=== PATIENT | male | born 1990 | race Caucasian/White ===

== ENCOUNTER 2017-08-30 20:46 | Observation (INO) | payer SELFPAY ==
[~2017-08-30] VITALS: Ht 193 cm; Wt 121.7 kg
[~2017-08-30 20:46] MED LIST: BACT800T5 PO; CEPH-460 PO; IBUP1TAB7 PO
[2017-08-30 21:20] VITALS: BP 155/92; PULSE 95; RESP 15; TEMP 99.6; O2SAT 99
[2017-08-30 21:42] VITALS: BP 134/86; PULSE 92; RESP 20; O2SAT 98
[2017-08-30] MEDS ORDERED: SODIUM CHLOR 0.9% 1000 ML INJ 1,000 ML IV ONE (21:45)
[2017-08-30] MEDS ORDERED: MORPHINE SULFATE 4 MG/ML INJ IV PUSH ONE (21:45)
[2017-08-30] MEDS ORDERED: METOCLOPRAMIDE HCL 10 MG/2 ML VIAL IV PUSH ONE (21:45)
[2017-08-30] MEDS ORDERED: NEXI20CA PO (21:46)
--- NOTE | 2017-08-30 21:51 | PD ---
HPI Chief Complaint: Abdominal Pain Time Seen by Provider: 21:26 Travel History International Travel<30 days: No Contact w/Intl Traveler<30days: No Traveled to known affect area: No History of Present Illness HPI The patient is a 26 year old male who presents to the [facility] emergency department with a history of abdominal pain that began around 1 PM today shortly after eating a small lunch. The patient reports that it began as a generalized abdominal cramping that then localized to the right lower quadrant of the abdomen. He reports that he has intermittent sharp pains in his right lower quadrant that occur with movement, with a dull aching sensation that is now constant. He denies having any known fevers. He reports having nausea without vomiting. He denies having any diarrhea. His last bowel movement was earlier today. He denies having any blood in his stool or black or tarry stools. He does have a history of heartburn and acid reflux which he treats with [id number]-iultdea omeprazole or Nexium. He denies this being any worse than usual recently. He denies having any dysuria, hematuria, urinary urgency, or frequency. He denies having any back pain. He denies having any pain down into his scrotum or scrotal swelling. The patient's only prior abdominal surgeries are an umbilical hernia and bilateral inguinal hernia repair as a child. On review of systems otherwise, the patient does report having a diminished appetite since the onset of symptoms. He denies having any cough, congestion, neck pain, chest pain, shortness of breath, or neurologic symptoms. The patient denies having any food intolerances. He denies having any recent problems with fatty food intake inducing nausea, abdominal pain, or diarrhea. [facility] Past Medical History Narrative Medical The patient's past medical history is significant for acid reflux. Past Surgical History Narrative Surgical The patient's past surgical history is significant for bilateral inguinal hernia repair, umbilical hernia repair as a child. Social History Alcohol Use: Yes (occ) Tobacco Use: No Substance Use: No Allergies-Medications (Allergen,Severity, Reaction): Coded Allergies: iodine (Verified Allergy, Unknown, 08/30/17) shellfish derived (Unverified Allergy, Unknown, 08/30/17) Reported Meds & Prescriptions Reported Meds & Active Scripts Active Reported Nexium (Esomeprazole DR) 20 Mg Capdr 20 Mg PO DAILY Review of Systems Except as stated in HPI: all other systems reviewed are Neg General / Constitutional: No: Fever Eyes: No: Visual changes HENT: No: Headaches Cardiovascular: No: Chest Pain or Discomfort Respiratory: No: Shortness of Breath Gastrointestinal: Positive: Nausea, Abdominal Pain, Indigestion, Loss of Appetite, No: Vomiting, Diarrhea, Hematochezia, Changes in Bowel Habits Genitourinary: No: Dysuria Musculoskeletal: No: Pain Skin: No Rash Neurologic: No: Weakness Psychiatric: No: Depression Endocrine: No: Polydipsia Hematologic/Lymphatic: No: Easy Bruising Physical Exam Narrative General: The patient is a well-developed well-nourished male in no acute distress. Head and Neck exam: Head is normocephalic atraumatic. Eyes: EOMI, pupils are equal round and reactive to light. Nose: Midline septum with pink mucous membranes Mouth: Dentition unremarkable. Moist mucus membranes. Posterior oropharynx is not erythematous. No tonsillar hypertrophy. Uvula midline. Airway patent. Neck: No palpable lymphadenopathy. No nuchal rigidity. No thyromegaly. Cardiovascular: Regular rate and rhythm without murmurs, gallops, or rubs. No pulse deficit to the extremities on simultaneous auscultation and palpation of his radial artery. Lungs: Clear to auscultation bilaterally. No wheezes, rhonchi, or rales. Abdomen: Soft, with tenderness on palpation of the right upper and right lower quadrant on examination no tenderness on palpation of the left upper and left lower quadrant. The patient has a negative Moser sign. The patient does have tenderness on palpation over McBurney's point. No guarding, rebound, or rigidity. Negative Rovsing sign. Normal bowel sounds are audible. Extremities: No clubbing, cyanosis, or edema. 2+ pulses in all 4 extremities. No calf tenderness on palpation. Back: No spinous process tenderness to palpation. No costovertebral angle tenderness to palpation. Neurologic Exam: Grossly nonfocal. Skin Exam: No rash noted. Intact skin that is warm and dry. Data Data Last Documented VS Vital Signs Date Time Temp Pulse Resp B/P (MAP) Pulse Ox O2 Delivery O2 Flow Rate FiO2 08/30/17 21:58 20 98 Room Air 08/30/17 21:42 92 08/30/17 21:20 99.6 Orders Orders Complete Blood Count With Diff (08/30/17 21:36) Comprehensive Metabolic Panel (08/30/17 21:36) Prothrombin Time / Inr (Pt) (08/30/17 21:36) Act Partial Throm Time (Ptt) (08/30/17 21:36) C-Reactive Protein (Crp) (08/30/17 21:36) Lipase (08/30/17 21:36) Urinalysis - C+S If Indicated (08/30/17 21:36) Magnesium (Mg) (08/30/17 21:36) Iv Access Insert/Monitor (08/30/17 21:36) Ecg Monitoring (08/30/17 21:36) Oximetry (08/30/17 21:36) Sodium Chlor 0.9% 1000 Ml Inj (Ns 1000 M (08/30/17 21:45) Morphine Inj (Morphine Inj) (08/30/17 21:45) Metoclopramide Inj (Reglan Inj) (08/30/17 21:45) Ct Abd/Pel W/O Iv Contrast (08/30/17 21:36) Piperacil-Tazo 3.375 Gm Premix (Zosyn 3. (08/30/17 22:45) Admit Order (Ed Use Only) (08/30/17 23:02) Labs Laboratory Tests Test 08/30/17 21:50 White Blood Count 13.8 TH/MM3 Red Blood Count 4.94 MIL/MM3 Hemoglobin 13.8 GM/DL Hematocrit 41.6 % Mean Corpuscular Volume 84.3 FL Mean Corpuscular Hemoglobin 28.0 PG Mean Corpuscular Hemoglobin Concent 33.2 % Red Cell Distribution Width 12.5 % Platelet Count 302 TH/MM3 Mean Platelet Volume 8.7 FL Neutrophils (%) (Auto) 86.0 % Lymphocytes (%) (Auto) 8.8 % Monocytes (%) (Auto) 4.5 % Eosinophils (%) (Auto) 0.3 % Basophils (%) (Auto) 0.4 % Neutrophils # (Auto) 11.9 TH/MM3 Lymphocytes # (Auto) 1.2 TH/MM3 Monocytes # (Auto) 0.6 TH/MM3 Eosinophils # (Auto) 0.0 TH/MM3 Basophils # (Auto) 0.1 TH/MM3 CBC Comment DIFF FINAL Differential Comment Prothrombin Time 10.7 SEC Prothromb Time International Ratio 1.1 RATIO Activated Partial Thromboplast Time 25.2 SEC Blood Urea Nitrogen 14 MG/DL Creatinine 1.15 MG/DL Random Glucose 101 MG/DL Total Protein 8.2 GM/DL Albumin 4.3 GM/DL Calcium Level 9.8 MG/DL Magnesium Level 2.0 MG/DL Alkaline Phosphatase 93 U/L Aspartate Amino Transf (AST/SGOT) 24 U/L Alanine Aminotransferase (ALT/SGPT) 67 U/L Total Bilirubin 0.5 MG/DL Sodium Level 137 MEQ/L Potassium Level 4.1 MEQ/L Chloride Level 103 MEQ/L Carbon Dioxide Level 24.9 MEQ/L Anion Gap 9 MEQ/L Estimat Glomerular Filtration Rate 76 ML/MIN C-Reactive Protein 2.00 MG/DL Lipase 140 U/L MDM Medical Decision Making Medical Screen Exam Complete: Yes Emergency Medical Condition: Yes Medical Record Reviewed: Yes Differential Diagnosis Appendicitis, versus acute cholecystitis, versus mesenteric adenitis, versus kidney stone, versus biliary colic Narrative Course During the course of the patient's emergency department visit, the patient's history, examination, and differential diagnosis were reviewed with the patient. The patient was placed on a playground monitor with oximetry and frequent blood pressure monitoring. The patient had IV access obtained and blood work sent for analysis. A CT scan of the abdomen and pelvis has been ordered. The patient was initially provided normal saline 1 L IV fluid bolus, morphine for pain, Compazine for nausea. The patient's laboratory studies were reviewed and remarkable for a white count of 13.8, hemoglobin 13.8, platelets 302 with 86 neutrophils, CMP is remarkable for GFR 76, C-reactive protein is elevated at 2, lipase 140, PT 10.7, PTT 25.2 Radiology studies were reviewed and remarkable for a CT scan of the abdomen and pelvis reveals evidence of acute appendicitis A call has been placed out to Dr. Rodriguez tolerated the general surgeon on- call at 10:30 PM. The patient's results were discussed with the patient, including the plan of care. I explained that further testing and/ or monitoring is indicated based on the patient's history, examination, and/ or laboratory findings. Therefore, I recommended admission for additional evaluation. The patient expressed understanding and was agreeable with this plan. The patient was admitted to the hospital in stable condition and sent to a bed under the care of Dr Rodriguez. Physician Communication Physician Communication The patient's case including history, pertinent physical examination findings, and laboratory studies were discussed with Jennifer. It was agreed that the patient would be admitted to the surgeon's service. Diagnosis Primary Impression: Abdominal pain Qualified Codes: R10.31 - Right lower quadrant pain Additional Impression: Acute appendicitis Qualified Codes: K35.3 - Acute appendicitis with localized peritonitis Admitting Information Admitting Physician Requests: Observation Eveline Mullins MD Aug 30, 2017 21:51
[2017-08-30 21:58] VITALS: RESP 20; O2SAT 98
[2017-08-30 21:59] LABS: AUTOMATED NEUTROPHIL # 11.9 TH/MM3 (1.8-7.7); BASOPHIL # 0.1 TH/MM3 (0-0.2); BASOPHIL % 0.4 % (0.0-2.0); EOSINOPHIL % 0.3 % (0.0-4.0); HEMATOCRIT 41.6 % (39.0-51.0); HEMOGLOBIN 13.8 GM/DL (13.0-17.0); LYMPH % 8.8 % (9.0-44.0); LYMPHOCYTE # 1.2 TH/MM3 (1.0-4.8); MEAN CELL VOLUME 84.3 FL (80.0-100.0); MEAN CORPUSCULAR HGB CONC 33.2 % (32.0-36.0); MEAN PLATELET VOLUME 8.7 FL (7.0-11.0); MONO % 4.5 % (0.0-8.0); MONOCYTE # 0.6 TH/MM3 (0-0.9); PLATELET COUNT 302 TH/MM3 (150-450); RED BLOOD COUNT 4.94 MIL/MM3 (4.50-5.90); RED CELL DISTRIBUTION WIDTH 12.5 % (11.6-17.2); WHITE BLOOD COUNT 13.8 TH/MM3 (4.0-11.0)
[2017-08-30 22:09] LABS: INTERNATIONAL NORMALIZED RATIO 1.1 RATIO; PROTHROMBIN TIME - PATIENT 10.7 SEC (9.8-11.6)
[2017-08-30 22:16] LABS: ALBUMIN 4.3 GM/DL (3.4-5.0); AST (GOT) 24 U/L (15-37); BICARBONATE 24.9 MEQ/L (21.0-32.0); BLOOD UREA NITROGEN 14 MG/DL (7-18); CALCIUM 9.8 MG/DL (8.5-10.1); CHLORIDE 103 MEQ/L (98-107); CREATININE 1.15 MG/DL (0.60-1.30); GLOMERULAR FILTRATION RATE 76 ML/MIN (>89); GLUCOSE,RANDOM 101 MG/DL (74-106); SODIUM (NA) 137 MEQ/L (136-145)
[2017-08-30 22:17] LABS: ALT (GPT) 67 U/L (12-78)
[2017-08-30 22:19] LABS: ALKALINE PHOSPHATASE 93 U/L (45-117); TOTAL BILIRUBIN ADULT 0.5 MG/DL (0.2-1.0); TOTAL PROTEIN 8.2 GM/DL (6.4-8.2)
--- NOTE | 2017-08-30 22:19 | RADRPT ---
EXAM DATE: 08/30/2017 10:16 PM EDT AGE/SEX: 26 years / Male INDICATIONS: Right lower quadrant pain and nausea. CLINICAL DATA: This is the patient's initial encounter. Patient reports that signs and symptoms have been present for 1 day and indicates a pain score of 8/10. MEDICAL/SURGICAL HISTORY: Gastroesophageal reflux disease. None. RADIATION DOSE: 16.49 CTDI (mGy) COMPARISON: No prior [facility] exams available for comparison. TECHNIQUE: Multiple contiguous axial images were obtained through the abdomen. Images were obtained using multiple row detector helical technique. Using dose reduction techniques, radiation dose was ke pt as low as reasonably achievable to obtain optimal diagnostic quality images. FINDINGS: Lung bases are clear. No pleural or pericardial effusions are identified. Liver, gallbladder, spleen, pancreas, adrenal glands, kidneys, urinary bladder, prostate unremarkable. No evidence of bowel obst ruction. There are inflammatory changes seen within the right lower quadrant consisting of inflammato ry fat stranding surrounding the appendix and trace periappendiceal fluid. The appendix is increased in diameter up to 11 mm in maximal dimension. There are tiny subcentimeter lymph nodes in this region . CONCLUSION: 1. Acute appendicitis. Electronically signed by: Dash Gama MD 08/30/2017 10:18 PM EDT
[2017-08-30] MEDS ORDERED: PIPERACIL-TAZO 3.375 GM PREMIX 50 ML IV ONE (22:45)
[2017-08-31] MEDS ORDERED: SODIUM CHLOR 0.9% 1000 ML INJ 1,000 ML IV SCH
[2017-08-31] MEDS ORDERED: METOCLOPRAMIDE HCL 10 MG/2 ML VIAL IV PUSH PRN
[2017-08-31] MEDS ORDERED: MORPHINE SULFATE 2 MG/ML SYRINGE IV PUSH PRN
[2017-08-31 00:16] VITALS: BP 141/83; PULSE 82; RESP 18; O2SAT 98
[2017-08-31 01:10] LABS: BILIRUBIN, URINE NEG (NEG); BLOOD, URINE NEG (NEG); GLUCOSE,URINE NEG (NEG); KETONE, URINE NEG (NEG); MUCUS URINE FEW /lpf (OCC); NITRITE,URINE NEG (NEG); PH, URINE 7.5 (5.0-8.5); RENAL EPITHELIAL CELLS <1 /hpf; URINE COLOR YELLOW (YELLW/STRAW); URINE LEUKOCYTE ESTERASE NEG (NEG)
[2017-08-31] MEDS ORDERED: SODIUM CHLORIDE 0.9% FLUSH 10 ML FLUSH IV FLUSH PRN (01:15)
[2017-08-31] MEDS: SODIUM CHLOR 0.9% 1000 ML INJ 1,000 ML IV SCH ×2 (01:46→09:12)
[2017-08-31 02:16] VITALS: BP 139/88; PULSE 72; RESP 18; TEMP 98.4; O2SAT 98
--- NOTE | 2017-08-31 03:22 | MH ---
cc: Randy Rodriguez MD DATE OF ADMISSION: 08/30/2017 DATE OF EVALUATION: 08/30/2017; time is 2300 hours. CHIEF COMPLAINT: Acute appendicitis. HISTORY OF PRESENT ILLNESS: The patient is a 26-year-old male who presented to [facility] with approximately 6 hours of increasing right lower quadrant pain. The patient states that had he felt fine until around lunch time, when he ate a sandwich. He developed some periumbilical abdominal pain that spread to the right lower quadrant. The pain is moderate and is constant, without radiation. He has never had this pain before. It gets better with pain medicine, but is made worse by putting pressure on the area or lying prone. The patient underwent evaluation by the emergency department including a CT scan of the abdomen and pelvis which was concerning for acute appendicitis. The patient is also noted to have an elevated white blood cell count. The patient was admitted for acute appendicitis. General surgery was asked to see the patient. REVIEW OF SYSTEMS: A 12-point review of systems was covered with the patient and is negative except for the pertinent positives mentioned above in history of present illness. PAST MEDICAL HISTORY: GERD. PAST SURGICAL HISTORY: Bilateral hernia repairs as a child. ALLERGIES: SHELLFISH AND IODINE. MEDICATIONS: Nexium. SOCIAL HISTORY: The patient occasionally uses alcohol. Denies tobacco or illicit drug use. FAMILY HISTORY: Noncontributory. PHYSICAL EXAMINATION: VITAL SIGNS: Temperature 99.6 degrees, heart rate 95, blood pressure 155/92. GENERAL: The patient is a well-developed, well-nourished, male in no acute distress, does not appear acute or chronically ill. HEENT: Head is normocephalic, atraumatic. Pupils equal, round, reactive to light. Sclerae are anicteric. Oral cavity is clear. NECK: No JVD. CHEST: Breath sounds present bilaterally. HEART: Regular rate and rhythm. No murmurs. ABDOMEN: Soft. Tender to palpation in right lower quadrant over McBurney's point. No diffuse peritonitis, rebound or guarding. No CVA tenderness on back exam. No hernias, ascites, or organomegaly. EXTREMITIES: Warm and perfused. No clubbing, cyanosis or edema. NEUROLOGIC: The patient is awake, alert and oriented x3. Nonfocal peripheral exam. Cranial nerves 2-12 are grossly intact. PSYCHIATRIC: Mood, judgment and insight are intact. LABORATORY DATA: White blood cell count is elevated at 13.8. CT scan of the abdomen and pelvis shows acute appendicitis. ASSESSMENT AND PLAN: The patient is a 26-year-old male with acute appendicitis. This is likely early appendicitis, as the patient only had the pain for a few hours and has minimal tenderness on exam without peritonitis. I evaluated the patient's CT scan and do feel the patient is a high suspicion for acute appendicitis. I have recommended IV antibiotics and placement in observation at the hospital for IV fluids and n.p.o. We will check availability of the operating room and proceed to the operating room for laparoscopic appendectomy. I did discuss the risks, benefits, and alternatives to laparoscopic appendectomy and visited with the patient. He agreed to undergo the procedure. All questions were answered to his satisfaction. MD DORA Michel/WANDA , 01:12 AM , 03:20 AM
[2017-08-31 04:30] VITALS: BP 125/63; PULSE 82; RESP 18; TEMP 96.6; O2SAT 97
[2017-08-31] MEDS: PIPERACIL-TAZO 3.375 GM PREMIX 50 ML IV SCH ×2 (06:00)
[2017-08-31] MEDS ORDERED: CHLORHEXIDINE GLUCONATE 2 % 1 PACK (2 CLOTHS) TOPICAL PRN (07:00)
[2017-08-31] MEDS ORDERED: LACTATED RINGER'S 1000 ML IV PRN (07:00)
[2017-08-31] MEDS ORDERED: SODIUM CHLORID 0.9% 500 ML IV PRN (07:00)
[2017-08-31 07:33] VITALS: BP 141/87; PULSE 64; RESP 18; TEMP 98.2; O2SAT 99
[2017-08-31] MEDS ORDERED: PANTOPRAZOLE SODIUM 40 MG VIAL IV PUSH SCH (09:00)
[2017-08-31] MEDS ORDERED: SODIUM CHLORIDE 0.9% FLUSH 10 ML FLUSH IV FLUSH SCH (09:00)
[2017-08-31] MEDS ORDERED: ACETAMINOPHEN 1000 MG/100 ML 100 ML IV ONE (09:44)
[2017-08-31] MEDS ORDERED: BUPIVACAINE/EPINEPHRINE 0.5% PF 10 ML VIAL ONE (09:46)
[2017-08-31] MEDS ORDERED: ROCURONIUM INJ 100 MG/10 ML VIAL IV ONE (12:00)
[2017-08-31] MEDS ORDERED: KETOROLAC TROMETHAMINE 30 MG/ML (IVP) VIAL IV PUSH ONE (12:00)
[2017-08-31] MEDS ORDERED: ONDANSETRON HCL 4 MG/2 ML VIAL IV ONE (12:00)
[2017-08-31] MEDS ORDERED: DEXAMETHASONE SOD PHOS 4 MG/ML VIAL IV ONE (12:00)
[2017-08-31] MEDS ORDERED: NEOSTIGMINE 5 MG/5 ML SYRINGE IV PUSH ONE (12:00)
[2017-08-31] MEDS ORDERED: LIDOCAINE HCL 1% PF 5 ML SYRINGE OTHER ONE (12:00)
[2017-08-31] MEDS ORDERED: GLYCOPYRROLATE 1 MG/5 ML SYRINGE IV PUSH ONE (12:00)
[2017-08-31] MEDS ORDERED: PROPOFOL 200 MG/20 ML AMP IV ONE (12:00)
[2017-08-31] MEDS ORDERED: LACTATED RINGER'S 1000 ML INJ 1,000 ML IV ONE (12:00)
[2017-08-31] MEDS ORDERED: DO NOT ADM ANY ANTICOAGULANT DRUGS PRN (13:50)
[2017-08-31] MEDS ORDERED: *MEPERIDINE 25 MG INJ VIAL PERIprocedural Use ONLY ONE (13:53)
[2017-08-31] MEDS ORDERED: MIDAZOLAM HCL 2 MG/2 ML VIAL ONE (14:03)
[2017-08-31] MEDS ORDERED: *morphine SULFATE 8 MG/ML PERIprocedure ONLY ONE (14:13)
[2017-08-31] MEDS ORDERED: HYDR-3288 PO (14:14)
--- NOTE | 2017-08-31 14:16 | HHI.PR ---
cc: Stiven Turpin MD Immediate Post Op Note Procedure Date: Aug 31, 2017 Pre Op Diagnosis: Acute appendicitis Post Op Diagnosis: Same, without perforation Surgeon: Stiven Turpin Driller And Broacher(s): Lorraine Kulkarni CFA Procedure: Laparoscopic appendectomy Complications: None Specimen(s) removed: Appendix to pathology Estimated blood loss: 20 ml Anesthesia: General Drains: None IVF (1200 ml) Patient to: PACU Patient Condition: Good Date/Time of Procedure: SEE SURGICAL CARE RECORD Stiven Turpin MD Aug 31, 2017 14:15
[2017-08-31 16:00] VITALS: BP 140/91; PULSE 77; RESP 18; TEMP 97.5; O2SAT 96
[2017-08-31] MEDS ORDERED: ACETAMINOPHEN/HYDROcodone 325 MG/5 MG TAB ONE (16:08)
--- NOTE | 2017-09-02 03:20 | MP ---
cc: Stiven Turpin MD DATE OF OPERATION: 08/31/2017 DATE OF PROCEDURE: 08/31/2017. PROCEDURE: Laparoscopic appendectomy, primary repair of recurrent umbilical hernia. PREOPERATIVE DIAGNOSIS: Acute appendicitis. POSTOPERATIVE DIAGNOSIS: Acute appendicitis without perforation. Recurrent incisional/umbilical hernia ANESTHESIA: General endotracheal. SURGEON: Stiven Turpin MD ESTIMATED BLOOD LOSS: 20 mL. FLUIDS: 1200 mL crystalloid. COMPLICATIONS: None. DRAINS: None. SPECIMENS: Appendix to pathology. PROCEDURE IN DETAIL: The patient was taken to the operating room and placed on the operating table in the supine position. After an adequate level of general endotracheal anesthesia was achieved, the abdomen was shaved, prepped and draped in the usual fashion. Timeout was taken, confirming the correct patient, site, and procedure to be performed. Skin and subcutaneous tissue was infiltrated with local anesthetic and an incision made in the umbilicus and carried through the fascia sharply. The patient's previously repaired umbilical hernia demonstrated fatty tissue within a recurrent hernia. This tissue was bluntly dissected away from the surrounding fascial tissues and reduced into the abdominal cavity. This allowed for exposure of the peritoneal cavity. A 12 mm balloon trocar was inserted and the balloon inflated. The abdomen was insufflated. The patient was placed in Trendelenburg position. Two 5 mm trocars were placed, with the first in the right lower quadrant and the second in the suprapubic region. Both entered the abdominal cavity under direct vision uneventfully. The cecum was rotated medially and a slightly retrocecal appendix was noted. This was dissected off of the cecum with gentle blunt dissection. The mesoappendix was divided with the Harmonic scalpel in a bloodless fashion. After dissecting down to the level of the base of the appendix, a 0 PDS Endoloop was placed over the appendix and cinched down at the base. The appendix was divided 1 cm distal to this utilizing the Harmonic scalpel. The appendix was placed into an EndoCatch device while observing via the right lower quadrant 5 mm trocar site. The appendix was removed via the umbilical port and passed off the table. The right lower quadrant and cul-de-sac were irrigated. The mesoappendix and appendiceal stump were seen to be clean and dry. All irrigation was aspirated from the abdominal cavity. Insufflation was discontinued and the 5 mm trocars were removed under direct vision. No bleeding was noted from the trocar sites. The laparoscope and umbilical port were then removed. The fascia was closed in the umbilicus with #1 Prolene in a simple interrupted fashion. No mesh was utilized, given the nature of the patient's acute problem. When this was completed, the remaining local anesthetic was injected into the trocar sites. The skin was closed at each of the trocar sites with 4-0 Vicryl in an interrupted buried fashion. All trocar sites were dressed with Steri-Strips. The patient was extubated and taken back to the recovery room in stable condition. He tolerated the procedure well. MD PAULIE Wyman/WANDA , 12:28 AM , 03:18 AM [email or web address]
== END 2017-08-31 15:33 | disposition home or self-care (01) ==
LOC: NEPC 20:46 → NEDA 23:04 → NEDH 08-31 04:26 → N07B 08-31 13:03
PROVIDERS: ADMIT Surgery; ATTEND Surgery
DX: K35.3 Acute appendicitis with localized peritonitis (principal); K42.9 Umbilical hernia without obstruction or gangrene; K21.9 Gastro-esophageal reflux disease without esophagitis
CPT/HCPCS: 00840; 44970; 74176; 80053; 81001; 83690; 83735; 85025; 85610; 85730; 86140; 88304; 96361; 96365; 96375; 99285; C9113; G0378; J0131; J1100; J1885; J2175; J2250; J2270; J2405; J2543; J2710; J2765; J3010; J7030; J7120